=== PATIENT | female | born 1960 | race African-American/Black ===

== ENCOUNTER 2017-08-09 04:08 | Emergency (ER) | payer SELFPAY ==
[~2017-08-09] VITALS: Ht 165.1 cm; Wt 74.5 kg
[~2017-08-09 04:08] MED LIST: ALBU8I INH; CLON.1 PO; ECOT81TA2 PO; GLIP5 PO; LOSA25 PO; LURA20TA PO; METF850T PO; METO50TA PO; TRAZ100 PO; VENL75 PO
[2017-08-09 04:15] VITALS: BP_SYST 179; BP_SYST 201; BP_DIAS 116; BP_DIAS 121; PULSE 101; RESP 16; TEMP 98.4; O2SAT 100
[2017-08-09 04:32] VITALS: BP 177/118; PULSE 96; RESP 20; O2SAT 98
[2017-08-09] MEDS ORDERED: PROCHLORPERAZINE INJ 10 MG/2 ML VIAL IVP ONE (04:45)
[2017-08-09] MEDS ORDERED: ACETAMINOPHEN 325 MG TAB PO ONE (04:45)
[2017-08-09] MEDS ORDERED: SODIUM CHLORIDE 0.9% FLUSH 10 ML FLUSH IVF PRN (04:45)
[2017-08-09] MEDS ORDERED: diphenhydrAMINE HCL 50 MG/ML VIAL IVP ONE (04:45)
[2017-08-09 04:47] VITALS: RESP 20; O2SAT 95
--- NOTE | 2017-08-09 04:50 | PD ---
HPI Chief Complaint: Hypertension Time Seen by Provider: 04:22 Travel History International Travel<30 days: No Contact w/Intl Traveler<30days: No Traveled to known affect area: No History of Present Illness HPI 56 yo F c/o anxiety, generalized headache and hypertension. She reports stress 2 /2 noncompliance with blood pressure medication due to lack of consistent follow up. No chest pain. Shortness of breath reported which patient believes in related to high blood pressure. no cough or fever. last time patient took blood pressure medication was about 10 days ago. PFSH Past Medical History Arthritis: Yes Autoimmune Disease: No Bipolar Disorder: Yes Anxiety: Yes Depression: Yes Cancer: No Cardiovascular Problems: Yes (HIGH BP) High Cholesterol: Yes Chest Pain: Yes Diabetes: Yes Patient Takes Glucophage: No Diminished Hearing: No Endocrine: No GERD: Yes Genitourinary: No Headaches: Yes Hypertension: Yes Implanted Vascular Access Dvce: No Kidney Stones: Yes Musculoskeletal: No Neurologic: No Psychiatric: Yes Reproductive: No Respiratory: No Influenza Vaccination: No ?: Not Menopausal: Yes : 4 Para: 2 Miscarriage: 1 : 1 Tubal Ligation: Yes Past Surgical History Gynecologic Surgery: Yes Social History Alcohol Use: Yes (occ) Tobacco Use: No Substance Use: No Allergies-Medications (Allergen,Severity, Reaction): Coded Allergies: aspirin (Unverified Allergy, Severe, Rash, 08/09/17) RESP PROBLEMS/ HIVES caffeine (Unverified Allergy, Severe, Rash, 08/09/17) RESP PROBLEMS/ HIVES orphenadrine (Unverified Allergy, Severe, Rash, 08/09/17) RESP PROBLEMS/ HIVES Reported Meds & Prescriptions Reported Meds & Active Scripts Active Catapres 0.1 mg (Clonidine HCl) 0.1 Mg Tab 1 Tab PO TID 30 Days Losartan Potassium 25 Mg Tab 25 Mg PO DAILY 30 Days Glipizide 5 Mg Tab 5 Mg PO BID@ 30 Days Metformin (Metformin HCl) 850 Mg Tab 850 Mg PO BID 30 Days Metoprolol Tartrate 50 mg (Metoprolol Tartrate) 50 Mg Tab 75 Mg PO BID 30 Days Ecotrin Low Strength (Aspirin) 81 Mg Tabec 81 Mg PO DAILY 30 Days Reported Latuda (Lurasidone HCl) 20 Mg Tab 20 Mg PO DAILY TAKE WITH FOOD (350 CALORIES OR MORE) Effexor 75 Mg Tab (Venlafaxine HCl) 75 Mg Tab 75 Mg PO DAILY Trazodone HCl 100 Mg Tab 100 Mg PO HS Review of Systems Except as stated in HPI: all other systems reviewed are Neg General / Constitutional: No: Fever Cardiovascular: No: Chest Pain or Discomfort, Palpitations, Irregular Rhythm, Diaphoresis Respiratory: Positive: Shortness of Breath, No: Cough Physical Exam Narrative GENERAL: 56 yo F, WNWD, NAD, pleasant mildly anxious SKIN: Warm and dry. HEAD: Atraumatic. Normocephalic. EYES: Pupils equal and round. No scleral icterus. No injection or drainage. ENT: No nasal bleeding or discharge. Mucous membranes pink and moist. NECK: Trachea midline. No JVD. CARDIOVASCULAR: Regular rate and rhythm. RESPIRATORY: No accessory muscle use. Clear to auscultation. Breath sounds equal bilaterally. GASTROINTESTINAL: Abdomen soft, non-tender, nondistended. Hepatic and splenic margins not palpable. MUSCULOSKELETAL: Extremities without clubbing, cyanosis, or edema. No obvious deformities. NEUROLOGICAL: CN III-XII normal. EOMI normal with conjugate gaze. Speech memory mentation normal. PSYCHIATRIC: Appropriate mood and affect; insight and judgment normal. Data Data Last Documented VS Vital Signs Date Time Temp Pulse Resp B/P (MAP) Pulse Ox O2 Delivery O2 Flow Rate FiO2 08/09/17 04:47 20 95 Room Air 08/09/17 04:32 96 08/09/17 04:15 98.4 VS reviewed Orders Orders Ecg Monitoring (08/09/17 04:43) Iv Access Insert/Monitor (08/09/17 04:43) Oximetry (08/09/17 04:43) Sodium Chloride 0.9% Flush (Ns Flush) (08/09/17 04:45) Acetaminophen (Tylenol) (08/09/17 04:45) Prochlorperazine Inj (Compazine Inj) (08/09/17 04:45) Diphenhydramine Inj (Benadryl Inj) (08/09/17 04:45) [facility] Medical Decision Making Medical Screen Exam Complete: Yes Emergency Medical Condition: Yes Medical Record Reviewed: Yes Differential Diagnosis anxiety, hypertension, migrain Narrative Course Patient received Compazine Benadryl and IV fluids. She was reassessed at 6 AM and was found resting comfortably without complaint. Diagnosis Primary Impression: Hypertension Qualified Codes: I10 - Essential (primary) hypertension Additional Impressions: Anxiety Headache Qualified Codes: R51 - Headache Med/Other Pt SpecificInfo: Prescription(s) given Disposition: 01 DISCHARGE HOME Condition: Stable Rohan Santamaria MD Aug 09, 2017 04:50
== END 2017-08-09 06:22 | disposition home or self-care (01) ==
LOC: NEPE 04:08
DX: I10 Essential (primary) hypertension (principal); F41.9 Anxiety disorder, unspecified; R51 Headache; R06.02 Shortness of breath; F31.9 Bipolar disorder, unspecified; E78.00 Pure hypercholesterolemia, unspecified; E11.9 Type 2 diabetes mellitus without complications; K21.9 Gastro-esophageal reflux disease without esophagitis; Z87.442 Personal history of urinary calculi
CPT/HCPCS: 96374; 96375; 99284; J0780; J1200

== ENCOUNTER 2017-12-20 11:11 | Emergency (ER) | payer SELFPAY ==
[~2017-12-20] VITALS: Ht 165.1 cm; Wt 75.5 kg
[~2017-12-20 11:11] MED LIST changes: -ALBU8I INH
[2017-12-20 11:48] VITALS: BP 221/129; PULSE 70; RESP 18; TEMP 98.2; O2SAT 100
[2017-12-20 11:59] VITALS: BP 210/111; PULSE 65; RESP 19; O2SAT 95
[2017-12-20] MEDS ORDERED: CLON0.1T PO ×2 (12:04→14:49)
[2017-12-20] MEDS ORDERED: VENL75TA PO (12:04)
[2017-12-20] MEDS ORDERED: LOSA25TA PO (12:04)
[2017-12-20] MEDS ORDERED: ASPI81TA23 PO (12:04)
[2017-12-20] MEDS ORDERED: TRAZ100T10 PO (12:04)
[2017-12-20] MEDS ORDERED: METF850T PO (12:04)
[2017-12-20] MEDS ORDERED: LURA20TA PO (12:04)
[2017-12-20] MEDS ORDERED: METO50TA PO ×2 (12:04→14:49)
[2017-12-20 12:28] VITALS: BP 199/119; PULSE 66; RESP 17; O2SAT 100
[2017-12-20] MEDS ORDERED: METOPROLOL TARTRATE 50 MG TAB PO ONE (12:30)
[2017-12-20] MEDS ORDERED: cloNIDine HCL 0.1 MG TAB PO ONE (12:30)
--- NOTE | 2017-12-20 13:17 | RADRPT ---
EXAM DATE/TIME: 12/20/2017 12:52 [place] COMPARISON: No previous studies available for comparison. INDICATIONS : Cough and congestion. MEDICAL HISTORY : Diabetes mellitus type II. Hypertension SURGICAL HISTORY : None. ENCOUNTER: Initial ACUITY: 3 days PAIN SCORE: 0/10 LOCATION: Bilateral chest FINDINGS: PA and lateral views of the chest demonstrate the lungs to be symmetrically aerated without evidence of mass, infiltrate or effusion. The cardiomediastinal contours are unremarkable. Osseous structure s are intact. CONCLUSION: No evidence of acute cardiopulmonary disease. Zach Buckner MD on December 20, 2017 at 13:14 Board Certified Radiologist. This report was verified electronically.
[2017-12-20] MEDS ORDERED: ACETAMINOPHEN 325 MG TAB PO ONE (14:00)
[2017-12-20 14:08] VITALS: BP 149/89; PULSE 62; RESP 18; O2SAT 94
--- NOTE | 2017-12-20 14:49 | PD ---
HPI Chief Complaint: Hypertension Time Seen by Provider: 12:10 Travel History International Travel<30 days: No Contact w/Intl Traveler<30days: No Traveled to known affect area: No History of Present Illness HPI Patient is a 57-year-old female who comes in complaining of high blood pressure. She says she does not have a doctor because she does not have insurance, so she has not been able to get her blood pressure medications. She says she takes metoprolol and clonidine. She says she has occasionally been taking her 's clonidine. She denies any chest pain or shortness of breath. She denies any dizziness or blurred vision. She says she does have a slight headache. She has been out of her medications for at least a month. Severity is mild. PFSH Past Medical History Arthritis: Yes Autoimmune Disease: No Bipolar Disorder: Yes Anxiety: Yes Depression: Yes Cancer: No Cardiovascular Problems: Yes (HIGH BP) High Cholesterol: Yes Chest Pain: Yes Diabetes: Yes Patient Takes Glucophage: Yes Diminished Hearing: No Endocrine: No GERD: Yes Genitourinary: No Headaches: Yes Hypertension: Yes Implanted Vascular Access Dvce: No Kidney Stones: Yes Musculoskeletal: No Neurologic: No Psychiatric: Yes Reproductive: No Respiratory: No ?: Not Menopausal: Yes : 4 Para: 2 Miscarriage: 1 : 1 Tubal Ligation: Yes Past Surgical History Gynecologic Surgery: Yes Social History Alcohol Use: Yes (daily) Tobacco Use: No Substance Use: No Allergies-Medications (Allergen,Severity, Reaction): Coded Allergies: aspirin (Unverified Allergy, Severe, Rash, 08/09/17) RESP PROBLEMS/ HIVES caffeine (Unverified Allergy, Severe, Rash, 08/09/17) RESP PROBLEMS/ HIVES orphenadrine (Unverified Allergy, Severe, Rash, 08/09/17) RESP PROBLEMS/ HIVES Reported Meds & Prescriptions Reported Meds & Active Scripts Active Reported Effexor (Venlafaxine HCl) 75 Mg Tab 75 Mg PO DAILY Trazodone (Trazodone HCl) 100 Mg Tablet 100 Mg PO HS Metoprolol Tartrate 50 Mg Tab 50 Mg PO BID Metformin (Metformin HCl) 850 Mg Tab 850 Mg PO BIDPC Latuda (Lurasidone) 20 Mg Tab 20 Mg PO DAILY Losartan (Losartan Potassium) 25 Mg Tab 25 Mg PO DAILY Clonidine (Clonidine HCl) 0.1 Mg Tab 0.1 Mg PO TID Aspirin EC (Aspirin) 81 Mg Tabdr 81 Mg PO DAILY Review of Systems Except as stated in HPI: all other systems reviewed are Neg General / Constitutional: No: Fever, Chills Eyes: No: Blurred Vision HENT: Positive: Headaches Cardiovascular: No: Chest Pain or Discomfort Respiratory: No: Shortness of Breath Gastrointestinal: No: Nausea, Vomiting Genitourinary: No: Dysuria Musculoskeletal: No: Myalgias, Edema Skin: No Rash, No Change in Pigmentation Neurologic: No: Weakness, Dizziness Physical Exam Narrative GENERAL: Awake and alert, in no acute distress. SKIN: Focused skin assessment warm/dry. No wounds or signs of infection. HEAD: Atraumatic. Normocephalic. EYES: Pupils equal and round. No scleral icterus. Extraocular movements intact. ENT: Mucous membranes pink and moist. NECK: Trachea midline. No JVD. CARDIOVASCULAR: Regular rate and rhythm. No murmur appreciated. RESPIRATORY: No accessory muscle use. Clear to auscultation. Breath sounds equal bilaterally. GASTROINTESTINAL: Abdomen soft, non-tender, nondistended. MUSCULOSKELETAL: No obvious deformities. No clubbing. No cyanosis. No edema. NEUROLOGICAL: Awake and alert. No obvious cranial nerve deficits. Motor grossly within normal limits. Normal speech. PSYCHIATRIC: Appropriate mood and affect; insight and judgment normal. Data Data Last Documented VS Vital Signs Date Time Temp Pulse Resp B/P (MAP) Pulse Ox O2 Delivery O2 Flow Rate FiO2 12/20/17 14:08 62 18 149/89 (109) 94 Room Air 12/20/17 11:48 98.2 Orders Orders Chest, Pa & Lat (12/20/17 ) Metoprolol Tartrate (Lopressor) (12/20/17 12:30) Clonidine (Catapres) (12/20/17 12:30) Acetaminophen (Tylenol) (12/20/17 14:00) MDM Medical Decision Making Medical Screen Exam Complete: Yes Emergency Medical Condition: Yes Medical Record Reviewed: Yes Differential Diagnosis Medication noncompliance versus hypertension versus tension headache Narrative Course Patient is a 57-year-old female who comes in because she is out of her blood pressure medication. She did complain of some cough, so chest x-ray obtained. This shows no abnormalities. Last 24 hours Impressions Chest X-Ray 12/20/17 0000 Signed Impressions: Service Date/Time: Wednesday, December 20, 2017 12:52 - CONCLUSION: No evidence of acute cardiopulmonary disease. Zach Buckner MD Patient given her blood pressure medication and Tylenol. She is resting comfortably. Given prescriptions for her medications and advised follow-up with the [facility]. Advised return anytime for any worsening symptoms. Diagnosis Primary Impression: Hypertension Qualified Codes: I10 - Essential (primary) hypertension Referrals: [facility] call for appointment Patient Instructions: Chronic Hypertension (ED), General Instructions Additional Instructions: Take your blood pressure medication as prescribed. Follow-up with a primary care doctor. Return to the ED as needed for any worsening symptoms. Scripts Clonidine (Clonidine) 0.1 Mg Tab 0.1 MG PO BID Y for [employer] BLOOD PRESSURE NOT MET, #60 TAB 0 Refills Prov: Britney Bob MD 12/20/17 Metoprolol Tartrate (Metoprolol Tartrate) 50 Mg Tab 50 MG PO BID, #60 TAB 0 Refills Prov: Britney Bob MD 12/20/17 Disposition: 01 DISCHARGE HOME Condition: Stable Britney Bob MD Dec 20, 2017 14:49
== END 2017-12-20 15:08 | disposition home or self-care (01) ==
LOC: NEPE 11:11
DX: I10 Essential (primary) hypertension (principal); R51 Headache; E11.9 Type 2 diabetes mellitus without complications; R05 Cough; Z79.84 Long term (current) use of oral hypoglycemic drugs
CPT/HCPCS: 71046; 99283